=== PATIENT | male | born 1985 | race Caucasian/White ===

== ENCOUNTER → 2021-10-02 | Outpatient (CLI) | payer OTHER ==
--- NOTE | 2021-10-03 07:01 | RAD ---
Three-view cervical spine dated 10/02/2021. COMPARISON: None. Clinical data indication: Pain. FINDINGS: 3 views cervical spine show straightening of the normal cervical lordosis. Sagittal alignment is othe rwise anatomic. Vertebral body heights are maintained. No prevertebral soft tissue swelling. Posterio r elements are intact. No evidence of fracture. No significant spondylotic changes. IMPRESSION: No acute radiographic abnormality. Electronically signed by: Memo Frey MD (10/03/2021 6:59 AM) [facility]
== END ==
LOC: RAD 16:23
PROVIDERS: ATTEND Family Medicine
DX: M47.812 Spondylosis without myelopathy or radiculopathy, cervical region (principal)
CPT/HCPCS: 72040